=== PATIENT | female | born 1995 | race African-American/Black ===

== ENCOUNTER 2021-11-27 15:43 | Emergency (ER) | payer OTHER ==
[~2021-11-27] VITALS: Ht 175.3 cm; Wt 68.0 kg
[2021-11-27 15:53] VITALS: BP 94/53
[2021-11-27] MEDS: ACETAMINOPHEN 325MG TABLET PO ONE ×2 (17:45→18:44)
[2021-11-27 17:49] LABS: CLARITY URINE CLEAR (CLEAR); COLOR URINE YELLOW (YELLOW); KETONES URINE TRACE (NEGATIVE); LEUKOCYTE ESTERASE URINE TRACE (NEGATIVE); NITRITE URINE NEGATIVE (NEGATIVE); OCCULT BLOOD URINE NEGATIVE (NEGATIVE); PH URINE 6.5 (4.5-8.0); PROTEIN URINE TRACE (NEGATIVE); SPECIFIC GRAVITY URINE 1.034 (1.005-1.030)
[2021-11-27 19:21] LABS: BASOPHILS % 0.2 % (0.0-2.0); EOSINOPHILS % 1.1 % (0.0-5.0); HEMATOCRIT. 37.7 % (36.0-48.0); HEMOGLOBIN. 11.5 g/dL (12.0-16.0); LYMPHOCYTES % 16.6 % (20.0-50.0); MEAN CORPUSCULAR HEMOGLOBIN 28.7 pg (28.0-32.0); MEAN CORPUSCULAR VOLUME 93.8 fL (81.0-99.0); MEAN PLATELET VOLUME 8.8 fl (7.4-10.4); MONOCYTES % 7.3 % (2.0-8.0); NEUTROPHILS % 74.8 % (40.0-76.0); PLATELET 243 x1000/uL (130-400); RED BLOOD CELL COUNT 4.02 mill/uL (4.2-5.4); RED CELL DISTRIBUTION WIDTH 15.4 % (11.6-14.6)
[2021-11-27 19:37] LABS: CHLORIDE 102 mEq/L (98-107)
[2021-11-27 19:39] LABS: HCG SCREEN POSITIVE
[2021-11-27] MEDS ORDERED: CEPH250C2 MT (20:00)
== END 2021-11-27 20:40 | disposition home or self-care (01) ==
LOC: ER 15:43
DX: O26.891 Other specified pregnancy related conditions, first trimester (principal); O23.41 Unspecified infection of urinary tract in pregnancy, first trimester; N39.0 Urinary tract infection, site not specified; M54.50 Low back pain, unspecified; M25.561 Pain in right knee; M25.551 Pain in right hip; Z3A.08 8 weeks gestation of pregnancy; Z88.3 Allergy status to other anti-infective agents; Z90.721 Acquired absence of ovaries, unilateral; V43.62XA Car passenger injured in collision with other type car in traffic accident, initial encounter; Y93.89 Activity, other specified; Y92.488 Other paved roadways as the place of occurrence of the external cause
CPT/HCPCS: 36415; 73502; 73564; 76705; 76801; 80053; 81003; 81025; 84702; 84703; 85025; 86850; 86900; 99285

== ENCOUNTER 2022-09-10 22:26 | Observation (INO) | payer MEDICAID ==
[~2022-09-10] VITALS: Ht 175.3 cm; Wt 68.0 kg
[~2022-09-10 22:26] MED LIST: CEPH250C2 MT
[2022-09-11 00:20] LABS: CLARITY URINE CLEAR (CLEAR); COLOR URINE YELLOW (YELLOW); KETONES URINE TRACE (NEGATIVE); LEUKOCYTE ESTERASE URINE TRACE (NEGATIVE); NITRITE URINE NEGATIVE (NEGATIVE); OCCULT BLOOD URINE NEGATIVE (NEGATIVE); PH URINE 6.5 (4.5-8.0); PROTEIN URINE NEGATIVE (NEGATIVE); SPECIFIC GRAVITY URINE 1.015 (1.005-1.030); UROBILINOGEN URINE 0.2 E.U./dL (0.2-1.0)
[2022-09-11] MEDS ORDERED: METO10TA3 PO (01:04)
[2022-09-11] MEDS ORDERED: PNV1TABL61 PO (01:04)
== END 2022-09-11 02:02 | disposition home or self-care (01) ==
LOC: 8 EST LDRP 22:26
PROVIDERS: ADMIT Obstetrics & Gynecology; ATTEND Obstetrics & Gynecology
DX: O26.892 Other specified pregnancy related conditions, second trimester (principal); R51.9 Headache, unspecified; R10.2 Pelvic and perineal pain; R10.9 Unspecified abdominal pain; Z3A.23 23 weeks gestation of pregnancy
CPT/HCPCS: 59025; 76805; 76817; 81003; 99281; G0378